=== PATIENT | female | born 1940 | race Caucasian/White ===

== ENCOUNTER 2023-01-17 05:49 | Day surgery (SDC) | payer MEDICARE ==
[2023-01-14 12:39] VITALS: BMI 34.0
[2023-01-17] MEDS ORDERED: Heparin 5,000 UNITS/ML VIAL ONE (06:38)
[2023-01-17] MEDS ORDERED: EPINEPHrine 1 MG/ML VIAL ONE (06:44)
[2023-01-17] MEDS ORDERED: Bacitracin Zinc Ointment 30 gm TUBE ONE (06:44)
[2023-01-17] MEDS ORDERED: Bupivacaine 0.25% HCL 30 ML VIAL ONE ×2 (06:44→07:44)
[2023-01-17] MEDS ORDERED: PROPOFOL 0 ML ONE (07:03)
[2023-01-17] MEDS ORDERED: fentaNYL PF 100 MCG/2 ML SYRINGE ONE ×2 (07:03→10:39)
[2023-01-17 07:08] LABS: Anion Gap 13 mmol/L (10-20); BUN (Urea Nitrogen) 27 mg/dL (9.8-20.1); Calc. Creatinine Clearance 70 mL/min (70-130); Calcium 9.3 mg/dL (7.8-10.44); Carbon Dioxide 25 mmol/L (23-31); Chloride 103 mmol/L (98-107); Estimated GFR 60; Glucose 116 mg/dL (83-110); Potassium 4.1 mmol/L (3.5-5.1); Sodium 137 mmol/L (136-145)
[2023-01-17] MEDS ORDERED: Famotidine/PF 20 mg/2ml Vial ONE (07:20)
[2023-01-17] MEDS ORDERED: Sodium Chloride 0.9% 100 ML ONE (07:28)
[2023-01-17] MEDS ORDERED: CEFAZOLIN 2 GM VIAL ONE (07:28)
[2023-01-17] MEDS ORDERED: Ondansetron PF 4 MG/2 ML Vial ONE ×2 (07:34→08:16)
[2023-01-17] MEDS ORDERED: ePHEDrine Sulfate 50 MG/10 ML VIAL ONE ×2 (07:34→07:55)
[2023-01-17] MEDS ORDERED: Lidocaine 1% PF 5 ML VIAL ONE (07:34)
[2023-01-17] MEDS ORDERED: PROPOFOL 200 MG/20 ML VIAL ONE (07:34)
[2023-01-17] MEDS ORDERED: Dexamethasone 20 MG/5 ML VIAL ONE (07:34)
[2023-01-17] MEDS ORDERED: Dexamethasone 4 mg/ml Vial ONE (07:52)
[2023-01-17] MEDS ORDERED: Mineral Oil Sterile 10 ML VIAL ONE (08:00)
[2023-01-17] MEDS ORDERED: HYDROcodone/Acetaminophen 5/325 mg Tablet ONE (10:10)
[2023-01-17] MEDS ORDERED: PROPOFOL 20 ML ONE (10:39)
== END 2023-01-17 10:20 | disposition home or self-care (01) ==
LOC: SDC 05:49
PROVIDERS: ATTEND Plastic Surgery
PROC: 0HR Skin and Breast, Replacement (ICD-10-PCS; principal; 2023-01-17)
DX: C44.41 Basal cell carcinoma of skin of scalp and neck (principal)
CPT/HCPCS: 14301; 80048; 93005; J0171; 88305; 93010; J1100; J1644; J2405; J2704; J3490; S0020; S0028